=== PATIENT | male | born 1945 | race Caucasian/White ===

== ENCOUNTER → 2020-01-13 | Outpatient (CLI) | payer MEDICARE, OTHER ==
[~2020-01-13] MED LIST: ASPI-1197 PO; ISOS30TA6 PO; LEVO25TA54 PO; LOSA50TA64 PO; MELO-108 PO; PRAV20TA4 PO; SIMV10TA2 PO; TAMS-1 PO; UBID200C18 PO; regular insulin SQ; testosterone IM
== END | disposition home or self-care (01) ==
LOC: RAH 08:59
PROVIDERS: ATTEND Physical Medicine & Rehabilitation
DX: M47.816 Spondylosis without myelopathy or radiculopathy, lumbar region (principal); M48.061 Spinal stenosis, lumbar region without neurogenic claudication
CPT/HCPCS: 72148

== ENCOUNTER 2020-07-06 14:37 | Observation (INO) | payer MEDICARE, OTHER ==
[~2020-07-06] VITALS: Ht 182.9 cm; Wt 90.7 kg
[~2020-07-06 14:37] MED LIST changes: -ISOS30TA6 PO; +ISOS30TA92 PO
[2020-07-06 16:25] LABS: BASOPHILS % (AUTO) 1.2 % (0.0-5.0); EOSINOPHILS % (AUTO) 5.6 % (0.0-8.0); HEMATOCRIT 30.5 % (42-54); LYMPHOCYTES % (AUTO) 36.6 % (21.0-51.0); MEAN CORPUSCULAR HEMOGLOBIN 30.3 pg (27.0-33.0); MEAN CORPUSCULAR HGB CONC 31.8 g/dL (32.0-36.0); MEAN CORPUSCULAR VOLUME 95.3 fL (79-99); MONOCYTES % (AUTO) 10.1 % (3.0-13.0); NEUTROPHILS % (AUTO) 46.2 % (40.0-77.0); PLATELET COUNT (AUTO) 246 K/uL (130-400); RED CELL DISTRIBUTION WIDTH 13.7 % (11.0-15.5); WHITE BLOOD COUNT (AUTO) 5.7 K/uL (4.8-10.8)
[2020-07-06 16:41] LABS: CREATININE 1.9 mg/dL (0.5-1.5); POTASSIUM 5.4 mmol/L (3.5-5.1)
[2020-07-06 16:43] LABS: INR 0.99 (0.85-1.15); PROTHROMBIN TIME 10.8 SEC (9.6-11.6)
[2020-07-06 16:44] LABS: PARTIAL THROMBOPLASTIN TIME 26.1 SEC (26.3-35.5)
[2020-07-06 16:46] LABS: ALBUMIN 3.3 g/dL (3.5-5.0); BILIRUBIN,TOTAL 0.2 mg/dL (0.2-1.0); TOTAL PROTEIN, SERUM 7.1 g/dL (6.0-8.3)
[2020-07-06] MEDS ORDERED: SODIUM CHLORIDE 0.9% 500ML 500 ML IV ONE (19:16)
[2020-07-06] MEDS ORDERED: SODIUM POLYSTYRENE SULFONATE 15 GM/60 ML ML ONE (19:21)
[2020-07-06] MEDS ORDERED: ONDANSETRON HCL 4 MG/2 ML VIAL IV PRN (21:00)
[2020-07-06] MEDS ORDERED: ACETAMINOPHEN 325 MG TAB PO PRN ×2 (21:00)
[2020-07-06] MEDS: SODIUM CHLORIDE 0.9% 1000ML 1,000 ML IV SCH (21:00)
[2020-07-06] MEDS ORDERED: FAMOTIDINE 20MG TAB 20 MG TAB PO SCH (21:00)
[2020-07-06 21:31] LABS: RETICULOCYTE % (AUTO) 1.41 % (0.42-2.23)
[2020-07-06 21:34] LABS: % IRON SATURATION 21.7 % (30-44)
[2020-07-06 21:38] LABS: PHOSPHORUS 3.3 mg/dL (2.5-4.9); URIC ACID 6.6 mg/dL (2.6-7.2)
[2020-07-06] MEDS: CEFTRIAXONE SODIUM 1 GM IVP SCH (21:45)
[2020-07-06 21:49] LABS: APPEARANCE,URINE Turbid (CLEAR); BILIRUBIN,URINE Negative (NEGATIVE); COLOR,URINE Yellow (YELLOW); GLUCOSE, URINE (UA) 250 mg/dL (NEGATIVE); KETONES,URINE Negative (NEGATIVE); LEUKOCYTE ESTERASE ,URINE Large (NEGATIVE); NITRATE,URINE Negative (NEGATIVE); OCCULT BLOOD,URINE Moderate (NEGATIVE); PH,URINE 5.5 (5.0-8.0); PROTEIN,URINE POS 2+ mg/dL (NEGATIVE); UROBILINOGEN,URINE 0.2 mg/dL (0.2-1.0)
[2020-07-06 21:55] LABS: PROTHROMBIN TIME 10.9 SEC (9.6-11.6)
[2020-07-06 21:56] LABS: PARTIAL THROMBOPLASTIN TIME 25.3 SEC (26.3-35.5)
[2020-07-06 22:05] LABS: CREATININE,URINE RANDOM 57 mg/dL (30-135); PROTEIN,URINE RANDOM 126.9 mg/dL (0-11.9); SODIUM,URINE RANDOM 80 mmol/l (40-220)
[2020-07-06 22:45] LABS: BACTERIA,URINE Moderate /HPF (None Seen); WBC,URINE TNTC /HPF (0-1)
[2020-07-07] MEDS ORDERED: CEFTRIAXONE SODIUM 1 GM ONE (02:58)
[2020-07-07 04:49] LABS: BASOPHILS % (AUTO) 0.9 % (0.0-5.0); EOSINOPHILS % (AUTO) 4.8 % (0.0-8.0); HEMATOCRIT 31.3 % (42-54); LYMPHOCYTES % (AUTO) 23.3 % (21.0-51.0); MEAN CORPUSCULAR HEMOGLOBIN 30.3 pg (27.0-33.0); MEAN CORPUSCULAR HGB CONC 31.9 g/dL (32.0-36.0); MEAN CORPUSCULAR VOLUME 94.8 fL (79-99); MONOCYTES % (AUTO) 8.6 % (3.0-13.0); PLATELET COUNT (AUTO) 268 K/uL (130-400); RED CELL DISTRIBUTION WIDTH 13.5 % (11.0-15.5); WHITE BLOOD COUNT (AUTO) 7.5 K/uL (4.8-10.8)
[2020-07-07 04:56] LABS: CREATININE 1.4 mg/dL (0.5-1.5); POTASSIUM 4.7 mmol/L (3.5-5.1)
[2020-07-07 04:59] LABS: PHOSPHORUS 2.7 mg/dL (2.5-4.9)
[2020-07-07 08:09] VITALS: BP 164/79
[2020-07-07] MEDS: Vitamin B Complex/Vit C/Folic Acid PO SCH (08:59)
[2020-07-07] MEDS ORDERED: LISINOPRIL 10 MG TABLET PO SCH (09:00)
[2020-07-07] MEDS: FAMOTIDINE 20MG TAB 20 MG TAB PO SCH (09:00)
[2020-07-07] MEDS: SODIUM CHLORIDE 0.9% 1000ML 1,000 ML IV SCH ×2 (09:01→16:40)
[2020-07-07] MEDS ORDERED: NITR100C9 PO (10:23)
[2020-07-07] MEDS ORDERED: ISOS30TA92 PO (10:23)
[2020-07-07] MEDS ORDERED: FENO54TA6 PO (10:23)
[2020-07-07] MEDS ORDERED: INSU100C6 SQ (10:23)
[2020-07-07] MEDS ORDERED: LISI20TA24 PO (10:23)
[2020-07-07] MEDS ORDERED: LEVO50CA4 PO (10:23)
[2020-07-07] MEDS ORDERED: GABA-529 PO (10:23)
[2020-07-07] MEDS ORDERED: MIRA25TA PO (10:23)
[2020-07-07 12:05] VITALS: BP 130/68
[2020-07-07 16:00] VITALS: BP 157/76
[2020-07-07 16:18] VITALS: BP 157/76
[2020-07-07 20:00] VITALS: BP 168/74
[2020-07-07] MEDS ORDERED: ISOSORBIDE MONO 30MG TAB SR PO SCH (21:00)
[2020-07-07] MEDS: CEFTRIAXONE SODIUM 1 GM IVP SCH (22:40)
[2020-07-07] MEDS: METOPROLOL TARTRATE 25 MG TAB PO SCH (22:40)
[2020-07-08] VITALS: BP 123/62
[2020-07-08 04:00] VITALS: BP 112/55
[2020-07-08 06:51] LABS: BASOPHILS % (AUTO) 1.1 % (0.0-5.0); EOSINOPHILS % (AUTO) 4.5 % (0.0-8.0); HEMATOCRIT 31.3 % (42-54); LYMPHOCYTES % (AUTO) 36.9 % (21.0-51.0); MEAN CORPUSCULAR HEMOGLOBIN 29.8 pg (27.0-33.0); MEAN CORPUSCULAR HGB CONC 31.6 g/dL (32.0-36.0); MEAN CORPUSCULAR VOLUME 94.3 fL (79-99); MONOCYTES % (AUTO) 9.1 % (3.0-13.0); PLATELET COUNT (AUTO) 280 K/uL (130-400); RED BLOOD CELL COUNT(AUTO) 3.32 MIL/uL (4.50-6.20); RED CELL DISTRIBUTION WIDTH 13.7 % (11.0-15.5); WHITE BLOOD COUNT (AUTO) 8.1 K/uL (4.8-10.8)
[2020-07-08 07:05] LABS: CREATININE 1.6 mg/dL (0.5-1.5); POTASSIUM 4.3 mmol/L (3.5-5.1)
[2020-07-08 07:15] VITALS: BP 116/58
[2020-07-08] MEDS: Vitamin B Complex/Vit C/Folic Acid PO SCH (09:03)
[2020-07-08] MEDS: METOPROLOL TARTRATE 25 MG TAB PO SCH (09:03)
[2020-07-08] MEDS: FAMOTIDINE 20MG TAB 20 MG TAB PO SCH (09:04)
[2020-07-08 11:12] VITALS: BP 117/56
[2020-07-08] MEDS ORDERED: METO25 PO (12:08)
[2020-07-08] MEDS ORDERED: COMPOUND IV MISC 1 EACH IVSOLN MISC PRN (13:15)
[2020-07-09] MEDS ORDERED: TAMSULOSIN HCL 0.4 MG CAP.ER.24H PO SCH (09:00)
[2020-07-09] MEDS ORDERED: IRON SUCROSE COMPLEX 100 MG in SODIUM CHLORIDE 0.9% 50 ML IV SCH (09:00)
== END 2020-07-08 14:58 | disposition home or self-care (01) ==
LOC: EDH 14:37 → INTOOBSV 20:51 → EDHIP 20:51 → 4AH 07-07 07:55
PROVIDERS: ADMIT Internal Medicine; ATTEND Internal Medicine
DX: E87.5 Hyperkalemia (principal); N17.9 Acute kidney failure, unspecified; I12.9 Hypertensive chronic kidney disease with stage 1 through stage 4 chronic kidney disease, or unspecified chronic kidney disease; E10.22 Type 1 diabetes mellitus with diabetic chronic kidney disease; E10.21 Type 1 diabetes mellitus with diabetic nephropathy; N18.2 Chronic kidney disease, stage 2 (mild); E78.5 Hyperlipidemia, unspecified; I25.10 Atherosclerotic heart disease of native coronary artery without angina pectoris; D64.9 Anemia, unspecified; E03.9 Hypothyroidism, unspecified; N41.9 Inflammatory disease of prostate, unspecified; N39.0 Urinary tract infection, site not specified; Z95.1 Presence of aortocoronary bypass graft; Z96.643 Presence of artificial hip joint, bilateral; Z96.41 Presence of insulin pump (external) (internal); Z79.899 Other long term (current) drug therapy; Z79.82 Long term (current) use of aspirin
CPT/HCPCS: 36415 ×3; 76770; 80048 ×2; 80053; 81001; 82570; 83036; 83540; 83550; 83735; 84100 ×2; 84145; 84156; 84300; 84484; 84550; 85025 ×3; 85045; 85610 ×2; 85730 ×2; 87088; 93005; 96361; 96374; 99285; G0378 ×42; J0696 ×2; J7030; J7040; J1756